=== PATIENT | female | born 1940 | race Caucasian/White ===

== ENCOUNTER 2016-06-21 12:17 | Inpatient (IN) | payer MEDICARE, OTHER ==
[~2016-06-21] VITALS: Ht 162.6 cm; Wt 91.1 kg
[2016-06-21] MEDS ORDERED: ACETAMINOPHEN 325 MG TAB ONE (12:47)
[2016-06-21] MEDS ORDERED: SODIUM CHLORIDE 0.9% 1,000 ML ONE ×3 (13:15→16:48)
[2016-06-21] MEDS ORDERED: OPTIRAY 350 100 ML VIAL HMH IV ONE (18:49)
[2016-06-21] MEDS ORDERED: MORPHINE ER 30 MG TAB PO SCH (20:00)
[2016-06-21] MEDS ORDERED: SODIUM CHLORIDE 0.9% IV ONE (22:20)
[2016-06-21] MEDS ORDERED: TOBRAMYCIN IV ONE (22:20)
[2016-06-21] MEDS ORDERED: VANCOMYCIN 1,750 MG in SODIUM CHLORIDE 0.9% 500 ML IV ONE (22:20)
[2016-06-21] MEDS ORDERED: ACETAMINOPHEN 325 MG TAB PO PRN (22:25)
[2016-06-21] MEDS ORDERED: SODIUM CHLOR 0.9% W/KCL 20MEQ 1,000 ML IV SCH (22:25)
[2016-06-21] MEDS ORDERED: PHARMACY TO DOSE VANCOMYCIN IV SCH (22:25)
[2016-06-21] MEDS ORDERED: PHARMACY TO DOSE TOBRAMYCIN IV SCH (22:25)
[2016-06-21 22:57] VITALS: Ht 162.6 cm; Wt 91.1 kg
[2016-06-21 22:58] VITALS: BP_SYST 120; RESP 20; TEMP 97.6
[2016-06-21] MEDS: LEVETIRACETAM 250 MG TAB PO SCH (23:38)
[2016-06-22] VITALS (12 sets, daily range): BP systolic 95–126; RESP 16–20; TEMP 98.1–98.9
[2016-06-22] MEDS: CLINDAMYCIN 300 MG in DEXTROSE 5% 50 ML IV SCH ×2 (00:54→05:58)
[2016-06-22] MEDS: LEVETIRACETAM 250 MG TAB PO SCH ×3 (08:33→21:58)
[2016-06-22] MEDS ORDERED: MISSING DOSE XX ONE (08:35)
[2016-06-22] MEDS ORDERED: DILTIAZEM CD 120 MG CAP PO SCH (09:00)
[2016-06-22] MEDS ORDERED: SODIUM CHLOR 0.9% W/KCL 20MEQ 1,000 ML IV SCH (10:15)
[2016-06-22] MEDS: PROMETHAZINE 25 MG/ML VIAL IV PRN ×3 (10:55→22:10)
[2016-06-22] MEDS: MORPHINE 4 MG/ML SYR IV PRN ×3 (10:57→22:00)
[2016-06-22] MEDS: DILTIAZEM CD 120 MG CAP PO SCH (11:36)
[2016-06-22] MEDS: METRONIDAZOLE 250 MG 500 MG in SODIUM CHLORIDE 0.9% 100 ML IV SCH ×2 (11:36→17:22)
[2016-06-22] MEDS: ANASTROZOLE 1 MG TAB PO SCH (11:36)
[2016-06-22] MEDS: THIAMINE 100 MG TAB PO SCH (11:37)
[2016-06-22] MEDS: METOPROLOL TART 50 MG TAB PO SCH ×2 (11:37→21:58)
[2016-06-22] MEDS: LEVOTHYROXINE 0.05 MG TAB PO SCH (11:37)
[2016-06-22] MEDS: MULTIVITS/MINERALS (THERAGRAN M) TAB PO SCH (11:37)
[2016-06-22] MEDS: FLECAINIDE 100 MG TAB PO SCH ×2 (11:37→21:57)
[2016-06-22] MEDS: CYANOCOBA 500 MCG TAB PO SCH (11:37)
[2016-06-22] MEDS: SUCRALFATE 1GM/10ML SUSP PO SCH ×2 (11:38→17:22)
[2016-06-22] MEDS: DICYCLOMINE 10 MG CAP PO SCH ×2 (11:38→17:22)
[2016-06-22] MEDS ORDERED: **NOTE TO NURSE XX SCH ×2 (14:16→20:00)
[2016-06-22] MEDS ORDERED: NEB-BUDESONIDE 0.5 MG INH ONE (16:55)
[2016-06-22] MEDS: NEB-BUDESONIDE 0.5 MG INH SCH (17:02)
[2016-06-22] MEDS: NEB-XOPENEX 0.63 MG/3 ML INH SCH (17:02)
[2016-06-22] MEDS: NEB-NACL 3% 4 ML NEBU INH SCH ×2 (17:02→23:53)
[2016-06-22] MEDS: NYSTATIN 500,000 UNITS/5 ML SUSP SWISH.SWAL SCH ×2 (17:52→21:57)
[2016-06-22] MEDS ORDERED: CATHFLO 2 MG VIAL IV ONE (18:15)
[2016-06-22] MEDS: *HOME MEDS IN MED CART XX SCH (20:00)
[2016-06-22] MEDS: APIXABAN 5 MG TAB PO SCH (21:58)
[2016-06-22] MEDS: TEMAZEPAM 15 MG CAP PO SCH (21:58)
[2016-06-22] MEDS: MICONAZOLE 2% PWD TOPICAL SCH (21:59)
[2016-06-22] MEDS: NYSTATIN 15 GM TOPICAL SCH (21:59)
[2016-06-22] MEDS ORDERED: VANCOMYCIN 1,500 MG in SODIUM CHLORIDE 0.9% 250 ML IV SCH (23:00)
[2016-06-23] VITALS (8 sets, daily range): BP systolic 113–142; RESP 16–20; TEMP 97.6–98.3
[2016-06-23] MEDS: METRONIDAZOLE 250 MG 500 MG in SODIUM CHLORIDE 0.9% 100 ML IV SCH ×4 (00:27→23:57)
[2016-06-23] MEDS: SODIUM CHLORIDE 0.9% FLUSH BAG 500 ML IV SCH (06:00)
[2016-06-23] MEDS: MORPHINE 4 MG/ML SYR IV PRN ×4 (06:07→21:37)
[2016-06-23] MEDS: PROMETHAZINE 25 MG/ML VIAL IV PRN ×4 (06:07→21:54)
[2016-06-23] MEDS: NEB-NACL 3% 4 ML NEBU INH SCH ×4 (06:30→23:44)
[2016-06-23] MEDS: NEB-XOPENEX 0.63 MG/3 ML INH SCH ×3 (06:30→20:47)
[2016-06-23] MEDS: NEB-BUDESONIDE 0.5 MG INH SCH ×2 (06:33→20:47)
[2016-06-23] MEDS: NEXIUM 40 MG PO SCH (07:20)
[2016-06-23] MEDS: DICYCLOMINE 10 MG CAP PO SCH ×3 (07:21→16:10)
[2016-06-23] MEDS: LEVOTHYROXINE 0.05 MG TAB PO SCH (07:21)
[2016-06-23] MEDS: SUCRALFATE 1GM/10ML SUSP PO SCH ×3 (07:21→16:10)
[2016-06-23] MEDS: *HOME MEDS IN MED CART XX SCH ×2 (08:00→20:00)
[2016-06-23] MEDS: FLECAINIDE 100 MG TAB PO SCH ×2 (08:13→21:36)
[2016-06-23] MEDS: LEVETIRACETAM 250 MG TAB PO SCH ×2 (08:13→21:36)
[2016-06-23] MEDS: MULTIVITS/MINERALS (THERAGRAN M) TAB PO SCH (08:13)
[2016-06-23] MEDS: CYANOCOBA 500 MCG TAB PO SCH (08:13)
[2016-06-23] MEDS: DILTIAZEM CD 120 MG CAP PO SCH (08:13)
[2016-06-23] MEDS: APIXABAN 5 MG TAB PO SCH ×2 (08:13→21:36)
[2016-06-23] MEDS: NYSTATIN 500,000 UNITS/5 ML SUSP SWISH.SWAL SCH ×4 (08:13→21:36)
[2016-06-23] MEDS: THIAMINE 100 MG TAB PO SCH (08:13)
[2016-06-23] MEDS: MICONAZOLE 2% PWD TOPICAL SCH (08:14)
[2016-06-23] MEDS: METOPROLOL TART 50 MG TAB PO SCH ×2 (08:14→21:36)
[2016-06-23] MEDS: ANASTROZOLE 1 MG TAB PO SCH (08:14)
[2016-06-23] MEDS: NYSTATIN 15 GM TOPICAL SCH ×2 (08:14→21:41)
[2016-06-23] MEDS ORDERED: PHARMACY TO DOSE XX SCH (09:40)
[2016-06-23] MEDS ORDERED: MISSING DOSE XX ONE (11:10)
[2016-06-23] MEDS: Docosanol 10% Cream 2 Gm TOPICAL SCH ×4 (11:39→21:45)
[2016-06-23] MEDS: LINEZOLID 600 MG TAB PO SCH ×2 (11:39→21:36)
[2016-06-23] MEDS: DESITIN OINT TOPICAL SCH ×2 (11:40→21:42)
[2016-06-23] MEDS: LOPERAMIDE 2 MG CAPSULE PO PRN (14:11)
[2016-06-23] MEDS: SODIUM CHLORIDE 0.9% IV SCH (14:12)
[2016-06-23] MEDS: TOBRAMYCIN IV SCH (14:12)
[2016-06-23] MEDS: TEMAZEPAM 15 MG CAP PO SCH (21:36)
[2016-06-24] MEDS: PROMETHAZINE 25 MG/ML VIAL IV PRN ×5 (02:00→23:48)
[2016-06-24] MEDS: MORPHINE 4 MG/ML SYR IV PRN ×5 (02:01→23:48)
[2016-06-24 05:12] VITALS: BP_SYST 122; RESP 18; TEMP 98.4
[2016-06-24] MEDS: LEVOTHYROXINE 0.05 MG TAB PO SCH (06:42)
[2016-06-24] MEDS: DICYCLOMINE 10 MG CAP PO SCH ×3 (06:42→17:37)
[2016-06-24] MEDS: SUCRALFATE 1GM/10ML SUSP PO SCH ×3 (06:42→17:38)
[2016-06-24] MEDS: NEXIUM 40 MG PO SCH (06:43)
[2016-06-24] MEDS: SODIUM CHLORIDE 0.9% FLUSH BAG 500 ML IV SCH ×2 (06:44→23:04)
[2016-06-24] MEDS: Docosanol 10% Cream 2 Gm TOPICAL SCH ×5 (06:44→23:44)
[2016-06-24] MEDS: NEB-BUDESONIDE 0.5 MG INH SCH ×2 (07:37→19:00)
[2016-06-24] MEDS: NEB-XOPENEX 0.63 MG/3 ML INH SCH ×3 (07:37→18:30)
[2016-06-24] MEDS: NEB-NACL 3% 4 ML NEBU INH SCH ×3 (07:37→18:30)
[2016-06-24] MEDS: *HOME MEDS IN MED CART XX SCH ×2 (08:00→19:36)
[2016-06-24 08:17] VITALS: BP_SYST 132; RESP 18; TEMP 97.1
[2016-06-24] MEDS: SODIUM CHLOR 0.9% W/KCL 20MEQ 1,000 ML IV SCH (10:10)
[2016-06-24] MEDS: DILTIAZEM CD 120 MG CAP PO SCH (10:13)
[2016-06-24] MEDS: ANASTROZOLE 1 MG TAB PO SCH (10:13)
[2016-06-24] MEDS: FLECAINIDE 100 MG TAB PO SCH ×2 (10:14→20:22)
[2016-06-24] MEDS: APIXABAN 5 MG TAB PO SCH ×2 (10:14→20:22)
[2016-06-24] MEDS: MULTIVITS/MINERALS (THERAGRAN M) TAB PO SCH (10:14)
[2016-06-24] MEDS: LEVETIRACETAM 250 MG TAB PO SCH ×2 (10:14→20:22)
[2016-06-24] MEDS: METOPROLOL TART 50 MG TAB PO SCH ×2 (10:14→20:31)
[2016-06-24] MEDS: CYANOCOBA 500 MCG TAB PO SCH (10:15)
[2016-06-24] MEDS: LINEZOLID 600 MG TAB PO SCH ×2 (10:15→20:22)
[2016-06-24] MEDS: THIAMINE 100 MG TAB PO SCH (10:15)
[2016-06-24] MEDS: NYSTATIN 500,000 UNITS/5 ML SUSP SWISH.SWAL SCH ×4 (10:16→20:21)
[2016-06-24] MEDS: DESITIN OINT TOPICAL SCH ×2 (10:21→20:26)
[2016-06-24] MEDS: NYSTATIN 15 GM TOPICAL SCH ×2 (10:22→20:26)
[2016-06-24] MEDS: METRONIDAZOLE 250 MG 500 MG in SODIUM CHLORIDE 0.9% 100 ML IV SCH ×3 (10:23→23:44)
[2016-06-24 12:24] VITALS: BP_SYST 130; RESP 18; TEMP 98.3
[2016-06-24 17:46] VITALS: BP_SYST 132; RESP 18; TEMP 97.6
[2016-06-24 19:39] VITALS: BP_SYST 161; TEMP 98
[2016-06-24 19:40] VITALS: RESP 20
[2016-06-24] MEDS: TEMAZEPAM 15 MG CAP PO SCH (23:44)
[2016-06-25] VITALS (10 sets, daily range): BP systolic 124–156; RESP 18–20; TEMP 97.7–98.9
[2016-06-25] MEDS: TOBRAMYCIN IV SCH (02:45)
[2016-06-25] MEDS: SODIUM CHLORIDE 0.9% IV SCH (02:45)
[2016-06-25] MEDS: SUCRALFATE 1GM/10ML SUSP PO SCH ×3 (03:28→17:30)
[2016-06-25] MEDS: NEB-BUDESONIDE 0.5 MG INH SCH ×2 (05:14→19:00)
[2016-06-25] MEDS: NEB-NACL 3% 4 ML NEBU INH SCH ×3 (05:14→18:30)
[2016-06-25] MEDS: NEB-XOPENEX 0.63 MG/3 ML INH SCH ×3 (05:15→18:30)
[2016-06-25] MEDS: Docosanol 10% Cream 2 Gm TOPICAL SCH ×5 (06:00→21:55)
[2016-06-25] MEDS: NEXIUM 40 MG PO SCH (06:06)
[2016-06-25] MEDS: SODIUM CHLOR 0.9% W/KCL 20MEQ 1,000 ML IV SCH ×2 (06:24→23:33)
[2016-06-25] MEDS: DICYCLOMINE 10 MG CAP PO SCH ×3 (06:24→17:29)
[2016-06-25] MEDS: LEVOTHYROXINE 0.05 MG TAB PO SCH (06:24)
[2016-06-25] MEDS: MORPHINE 4 MG/ML SYR IV PRN ×5 (06:30→23:35)
[2016-06-25] MEDS: PROMETHAZINE 25 MG/ML VIAL IV PRN ×5 (06:31→23:34)
[2016-06-25] MEDS: *HOME MEDS IN MED CART XX SCH ×2 (07:29→21:54)
[2016-06-25] MEDS: NYSTATIN 15 GM TOPICAL SCH ×2 (09:00→21:00)
[2016-06-25] MEDS: DESITIN OINT TOPICAL SCH ×2 (09:00→21:00)
[2016-06-25] MEDS: METRONIDAZOLE 250 MG 500 MG in SODIUM CHLORIDE 0.9% 100 ML IV SCH ×3 (09:11→23:34)
[2016-06-25] MEDS: FLECAINIDE 100 MG TAB PO SCH ×2 (09:11→22:13)
[2016-06-25] MEDS: APIXABAN 5 MG TAB PO SCH ×2 (09:11→22:14)
[2016-06-25] MEDS: THIAMINE 100 MG TAB PO SCH (09:11)
[2016-06-25] MEDS: METOPROLOL TART 50 MG TAB PO SCH ×2 (09:11→22:13)
[2016-06-25] MEDS: MULTIVITS/MINERALS (THERAGRAN M) TAB PO SCH (09:11)
[2016-06-25] MEDS: LEVETIRACETAM 250 MG TAB PO SCH ×2 (09:11→22:13)
[2016-06-25] MEDS: NYSTATIN 500,000 UNITS/5 ML SUSP SWISH.SWAL SCH ×4 (09:11→22:13)
[2016-06-25] MEDS: DILTIAZEM CD 120 MG CAP PO SCH (09:12)
[2016-06-25] MEDS: LINEZOLID 600 MG TAB PO SCH ×2 (09:12→22:13)
[2016-06-25] MEDS: CYANOCOBA 500 MCG TAB PO SCH (09:12)
[2016-06-25] MEDS: ANASTROZOLE 1 MG TAB PO SCH (09:12)
[2016-06-25] MEDS: FLUCONAZOLE 150 MG TAB PO SCH (16:20)
[2016-06-25] MEDS ORDERED: FLUCONAZOLE 150 MG TAB PO ONE (16:20)
[2016-06-25] MEDS: SODIUM CHLORIDE 0.9% FLUSH BAG 500 ML IV SCH (23:34)
[2016-06-25] MEDS: TEMAZEPAM 15 MG CAP PO SCH (23:35)
[2016-06-26 03:14] VITALS: BP_SYST 138; RESP 20; TEMP 98.6
[2016-06-26] MEDS: MORPHINE 4 MG/ML SYR IV PRN ×5 (05:32→22:08)
[2016-06-26] MEDS: PROMETHAZINE 25 MG/ML VIAL IV PRN ×5 (05:32→22:08)
[2016-06-26] MEDS: Docosanol 10% Cream 2 Gm TOPICAL SCH ×6 (05:32→21:33)
[2016-06-26] MEDS ORDERED: MISSING DOSE XX ONE ×2 (05:40→08:25)
[2016-06-26] MEDS: NEB-NACL 3% 4 ML NEBU INH SCH ×4 (06:30→18:27)
[2016-06-26] MEDS: SUCRALFATE 1GM/10ML SUSP PO SCH ×3 (06:34→17:38)
[2016-06-26] MEDS: DICYCLOMINE 10 MG CAP PO SCH ×3 (06:35→17:37)
[2016-06-26] MEDS: LOPERAMIDE 2 MG CAPSULE PO PRN (06:35)
[2016-06-26] MEDS: NEXIUM 40 MG PO SCH (06:35)
[2016-06-26] MEDS: LEVOTHYROXINE 0.05 MG TAB PO SCH (06:35)
[2016-06-26] MEDS: NEB-XOPENEX 0.63 MG/3 ML INH SCH ×4 (07:10→18:27)
[2016-06-26] MEDS: NEB-BUDESONIDE 0.5 MG INH SCH ×2 (07:10→18:27)
[2016-06-26] MEDS: *HOME MEDS IN MED CART XX SCH ×2 (07:48→20:00)
[2016-06-26 08:31] VITALS: BP_SYST 146; RESP 18; TEMP 97.8
[2016-06-26] MEDS: NYSTATIN 500,000 UNITS/5 ML SUSP SWISH.SWAL SCH ×4 (09:44→21:32)
[2016-06-26] MEDS: FLUCONAZOLE 150 MG TAB PO SCH (09:44)
[2016-06-26] MEDS: METRONIDAZOLE 250 MG 500 MG in SODIUM CHLORIDE 0.9% 100 ML IV SCH ×2 (09:45→17:37)
[2016-06-26] MEDS: MULTIVITS/MINERALS (THERAGRAN M) TAB PO SCH (09:47)
[2016-06-26] MEDS: FLECAINIDE 100 MG TAB PO SCH ×2 (09:47→21:32)
[2016-06-26] MEDS: THIAMINE 100 MG TAB PO SCH (09:47)
[2016-06-26] MEDS: ANASTROZOLE 1 MG TAB PO SCH (09:47)
[2016-06-26] MEDS: LINEZOLID 600 MG TAB PO SCH ×2 (09:47→21:33)
[2016-06-26] MEDS: DILTIAZEM CD 120 MG CAP PO SCH (09:47)
[2016-06-26] MEDS: APIXABAN 5 MG TAB PO SCH ×2 (09:47→21:33)
[2016-06-26] MEDS: CYANOCOBA 500 MCG TAB PO SCH (09:48)
[2016-06-26] MEDS: LEVETIRACETAM 250 MG TAB PO SCH ×2 (09:48→21:32)
[2016-06-26] MEDS: METOPROLOL TART 50 MG TAB PO SCH ×2 (09:48→21:33)
[2016-06-26] MEDS: DESITIN OINT TOPICAL SCH ×2 (09:49→21:00)
[2016-06-26] MEDS: NYSTATIN 15 GM TOPICAL SCH ×2 (09:49→21:00)
[2016-06-26] MEDS ORDERED: NEB-NACL 3% 4 ML NEBU INH ONE (10:51)
[2016-06-26 13:09] VITALS: BP_SYST 130; RESP 18; TEMP 97.8
[2016-06-26] MEDS: SODIUM CHLORIDE 0.9% IV SCH (13:53)
[2016-06-26] MEDS: TOBRAMYCIN IV SCH (13:53)
[2016-06-26 16:51] VITALS: BP_SYST 138; RESP 18; TEMP 98.6
[2016-06-26] MEDS: SODIUM CHLOR 0.9% W/KCL 20MEQ 1,000 ML IV SCH (17:38)
[2016-06-26 20:56] VITALS: BP_SYST 100; RESP 20; TEMP 98.3
[2016-06-27] MEDS: TEMAZEPAM 15 MG CAP PO SCH (00:05)
[2016-06-27] MEDS: METRONIDAZOLE 250 MG 500 MG in SODIUM CHLORIDE 0.9% 100 ML IV SCH ×3 (00:06→17:09)
[2016-06-27] MEDS: NEB-NACL 3% 4 ML NEBU INH SCH ×3 (00:30→11:39)
[2016-06-27] MEDS: SODIUM CHLORIDE 0.9% FLUSH BAG 500 ML IV SCH (03:25)
[2016-06-27] MEDS: Docosanol 10% Cream 2 Gm TOPICAL SCH ×4 (03:25→17:06)
[2016-06-27] MEDS: MORPHINE 4 MG/ML SYR IV PRN ×4 (03:26→17:07)
[2016-06-27] MEDS: PROMETHAZINE 25 MG/ML VIAL IV PRN ×4 (03:26→17:05)
[2016-06-27] MEDS: LOPERAMIDE 2 MG CAPSULE PO PRN (03:29)
[2016-06-27 04:26] VITALS: BP_SYST 145; RESP 18; TEMP 97.5
[2016-06-27] MEDS: LEVOTHYROXINE 0.05 MG TAB PO SCH (06:09)
[2016-06-27] MEDS: DICYCLOMINE 10 MG CAP PO SCH ×3 (06:09→17:06)
[2016-06-27] MEDS: SUCRALFATE 1GM/10ML SUSP PO SCH ×3 (06:09→17:05)
[2016-06-27] MEDS: NEXIUM 40 MG PO SCH (06:09)
[2016-06-27 07:56] VITALS: BP_SYST 144; RESP 16; TEMP 97.3
[2016-06-27] MEDS: *HOME MEDS IN MED CART XX SCH ×2 (08:00→17:08)
[2016-06-27] MEDS: NEB-BUDESONIDE 0.5 MG INH SCH (08:00)
[2016-06-27] MEDS: NEB-XOPENEX 0.63 MG/3 ML INH SCH ×2 (08:00→11:39)
[2016-06-27] MEDS ORDERED: MISSING DOSE XX ONE (08:30)
[2016-06-27] MEDS: FLUCONAZOLE 150 MG TAB PO SCH (08:39)
[2016-06-27] MEDS: LINEZOLID 600 MG TAB PO SCH (08:40)
[2016-06-27] MEDS: THIAMINE 100 MG TAB PO SCH (08:40)
[2016-06-27] MEDS: CYANOCOBA 500 MCG TAB PO SCH (08:40)
[2016-06-27] MEDS: MULTIVITS/MINERALS (THERAGRAN M) TAB PO SCH (08:40)
[2016-06-27] MEDS: LEVETIRACETAM 250 MG TAB PO SCH (08:40)
[2016-06-27] MEDS: FLECAINIDE 100 MG TAB PO SCH (08:40)
[2016-06-27] MEDS: ANASTROZOLE 1 MG TAB PO SCH (08:40)
[2016-06-27] MEDS: DILTIAZEM CD 120 MG CAP PO SCH (08:41)
[2016-06-27] MEDS: METOPROLOL TART 50 MG TAB PO SCH (08:41)
[2016-06-27] MEDS: APIXABAN 5 MG TAB PO SCH (08:41)
[2016-06-27] MEDS: NYSTATIN 15 GM TOPICAL SCH (08:44)
[2016-06-27] MEDS: DESITIN OINT TOPICAL SCH (08:44)
[2016-06-27] MEDS: NYSTATIN 500,000 UNITS/5 ML SUSP SWISH.SWAL SCH ×3 (09:45→17:05)
[2016-06-27 10:44] VITALS: BP_SYST 144; RESP 18; TEMP 97.3
[2016-06-27 12:19] VITALS: BP_SYST 144; RESP 16; TEMP 97.6
[2016-06-27 17:01] VITALS: BP_SYST 142; RESP 16; TEMP 98.3
[2016-06-27 18:05] VITALS: RESP 16
== END 2016-06-27 19:17 | disposition home or self-care (01) | DRG 194 ==
LOC: ENRESERVTM → ENRESERVDT → ER 12:17 → EMR 17:49 → ENPENDDIS 17:49 → 3NT 20:25
PROVIDERS: ADMIT Internal Medicine; ATTEND Internal Medicine
DX: J18.9 Pneumonia, unspecified organism (principal); R04.2 Hemoptysis; N39.0 Urinary tract infection, site not specified; R50.9 Fever, unspecified; I48.0 Paroxysmal atrial fibrillation; Z79.01 Long term (current) use of anticoagulants; M06.9 Rheumatoid arthritis, unspecified; K21.9 Gastro-esophageal reflux disease without esophagitis; J44.9 Chronic obstructive pulmonary disease, unspecified; K58.0 Irritable bowel syndrome with diarrhea; Z85.3 Personal history of malignant neoplasm of breast; Z86.718 Personal history of other venous thrombosis and embolism; R13.12 Dysphagia, oropharyngeal phase; D64.9 Anemia, unspecified
CPT/HCPCS: 74022; 74177; 74230; 80053; 80200; 81001; 82565; 83605; 84520; 85025; 85610; 85730; 87040; 87045; 87046; 87071; 87077; 87088; 87186; 87205; 87493; 87804; 94640; 94667; 94799; 96361; 99223; 99232; 99233